=== PATIENT | male | born 1940 | race Hispanic/Latino ===

== ENCOUNTER 2017-03-21 10:56 | Day surgery (SDC) | payer MEDICARE ==
[2017-03-21] MEDS ORDERED: NACL BACTERIOSTATIC INFILTRATI ONE (11:27)
[2017-03-21] MEDS ORDERED: XYLOCAINE MPF 2% ONE (11:48)
[2017-03-21] MEDS ORDERED: DILAUDID ONE (11:48)
[2017-03-21] MEDS ORDERED: DIPRIVAN 10 MG/ML IV ONE (11:48)
[2017-03-21] MEDS ORDERED: ANCEF/STERILE WATER 2 GM/20 ML 2 GM/20 ML SYRINGE IV NR (12:00)
[2017-03-21 12:08] LABS: Hematocrit 37.4 % (35.5-45.6); Hemoglobin 12.8 gm/dl (11.8-15.2)
--- NOTE | 2017-03-21 12:17 | Anesthesia Consultation ---
Anesthesia Consult and Med Hx Date of service: 03/21/17 - Airway Anesthetic Teeth Evaluation: Poor (multiple missing, broken teeth) ROM Head & Neck: Adequate Mental/Hyoid Distance: Adequate Mallampati Class: Class II Intubation Access Assessment: Probably Good - Pre-Operative Health Status ASA Pre-Surgery Classification: ASA3 Proposed Anesthetic Plan: General - Pulmonary Hx Smoking: Yes (STOPPED 2000- PPD X 30 YRS) SOB: Yes (SOB) COPD: Yes (O2 ORDERED AT NIGHT- PT WILL NOT USE) Hx Sleep Apnea: No (SAMANTHA PRE SCREEN HIGH RISK) - Cardiovascular System Hx Hypertension: Yes Hx Coronary Artery Disease: Yes Hx Heart Attack/AMI: Yes (?) Hx Angina: No (no chest pain lately) Hx Percutaneous Transluminal Coronary Angioplasty (PTCA): Yes Hx Valvular Heart Disease: Yes (mitral valve repair 2012) - Central Nervous System Hx Psychiatric Problems: Yes (dementia) - Other Systems Hx Cancer: Yes (LEUKEMIA-IV TX Q 60-90 DAYS)
--- NOTE | 2017-03-21 12:18 | Anesthesia Day of Surgery ---
Anesthesia Day of Surgery - Day of Surgery Patient Examined: Yes Patient H&P Reviewed: Yes Patient is NPO: Yes Beta Blockers: Yes
[2017-03-21 12:21] LABS: Calcium 9.2 mg/dL (8.4-10.2); Chloride 99.6 mmol/L (98-107); Potassium 4.6 mmol/L (3.6-5.0)
[2017-03-21] MEDS ORDERED: PEPCID IV NR (12:30)
[2017-03-21] MEDS ORDERED: NEO SYNEPHRINE/NS Syringe(OR USE) IV ONE (12:30)
[2017-03-21 12:35] LABS: Hematocrit 39.1 % (35.5-45.6); Hemoglobin 12.8 gm/dl (11.8-15.2); Mean Corpuscular HGB Conc 33 % (32-34); Mean Corpuscular Hemoglobin 29 pg (28-32); Mean Corpuscular Volume 90 fl (84-94); Platelet Count 210 K/mm3 (140-440); Red Blood Count 4.35 M/mm3 (3.65-5.03); Red Cell Distribution Width 15.4 % (13.2-15.2); White Blood Count 9.3 K/mm3 (4.5-11.0)
[2017-03-21] MEDS ORDERED: SUBLIMAZE ONE (12:48)
[2017-03-21] MEDS ORDERED: ZOFRAN IV PRN (13:00)
[2017-03-21] MEDS ORDERED: NACL 0.9% 1000 ML 1,000 ML IV SCH (13:00)
[2017-03-21] MEDS ORDERED: DILAUDID IV PRN (13:00)
[2017-03-21] MEDS ORDERED: ePHEDrine SULFATE ONE (13:04)
[2017-03-21] MEDS ORDERED: AMIDATE IV ONE (13:31)
[2017-03-21] MEDS ORDERED: DECADRON ONE (13:32)
[2017-03-21] MEDS ORDERED: ZOFRAN ONE (13:32)
--- NOTE | 2017-03-21 13:43 | Post Operative Note ---
Date of procedure: 03/21/17 Pre-op diagnosis: urinary retention renal failure Post-op diagnosis: same Findings: bilat rflux Procedure: cysto spt insertion cystogram Anesthesia: GETA Surgeon: LEEANNA KAUFMAN Estimated blood loss: none Pathology: none Condition: stable Disposition: PACU
[2017-03-21 13:47] LABS: Blastocytes % (Manual) 0 %
[2017-03-21 13:48] LABS: Anisocytosis Few; Diff Status Complete
--- NOTE | 2017-03-21 13:48 | Discharge Summary ---
Short Stay Discharge Plan Activity: other (no straining ) Weight Bearing Status: Full Weight Bearing Diet: low salt Wound: keep clean and dry Special Instructions: other (spt care ) Durable Medical Equipment Needed Upon Discharge: other (suprapubic tube) Follow up with: SEAN JONES MD [Primary Care Provider] - 7 Days LEEANNA KAUFMAN MD [Staff Physician] - 10 Days
--- NOTE | 2017-03-21 14:14 | Operative Report ---
PREOPERATIVE DIAGNOSES: Urinary retention, neurogenic bladder. POSTOPERATIVE DIAGNOSES: Urinary retention, neurogenic bladder with severe dementia, . PROCEDURE: Cystoscopy with suprapubic tube insertion and cystogram. SURGEON: Alexander Fierro MD ANESTHESIA: General. FINDINGS: This is a gentleman who is poorly compliant with urinary retention, renal failure, reflux, hydroureter, now presents for suprapubic tube placement for discomfort with Barron. DESCRIPTION OF PROCEDURE: The patient was brought to the operating room and placed on the operating table. Following induction of anesthesia, placed in a lithotomy position, prepped and draped in usual sterile fashion. Flexible cystoscopy showed an open bladder neck. There was significant trabeculation. Using the [place], we made a small incision maybe approximately 1-1.5 cm right on the [place] and a 20-Japanese Silastic catheter was brought through the urethra and this was filled with about 15 mL of sterile water. Cystogram showed bilateral reflux with a thickened end-stage bladder, open bladder neck. The patient tolerated the procedure well. No significant bleeding, brought to recovery in stable condition. JOB# [id number] OCTAVIO/GOSIA
--- NOTE | 2017-03-21 15:29 | Fluoroscopy Report ---
Static cystogram. History: Neurogenic bladder. Findings: The study was performed in the OR by Dr. Fierro. The bladder is normal in contour but appears decreased in size. There is vesicoureteral reflux into markedly dilated distal ureters. The upper abdomen is not imaged on this study. Contrast is also seen within the urethra. Impression: 1. Decreased size of the urinary bladder consistent with the clinical diagnosis of neurogenic bladder. 2. Vesicoureteral reflux.
[2017-03-21 18:15] VITALS: BP 118/73
--- NOTE | 2017-03-21 18:42 | Post Anesthesia Evaluation ---
- Post Anesthesia Evaluation Patient Participated: Yes Airway Patent: Yes Stable Respiratory Function: Yes Nausea/Vomiting: No Temp > 96.8F: Yes Pain Manageable: Yes Adequeate Hydration: Yes Anesthesia Complications: No Block Receding Appropriately: Not Applicable Patient on Ventilator: No
== END 2017-03-21 15:50 | disposition home or self-care (01) ==
LOC: OR 10:56
PROVIDERS: ATTEND Urology
DX: N31.9 Neuromuscular dysfunction of bladder, unspecified (principal); N32.89 Other specified disorders of bladder; J44.9 Chronic obstructive pulmonary disease, unspecified; I10 Essential (primary) hypertension; I25.10 Atherosclerotic heart disease of native coronary artery without angina pectoris; F03.90 Unspecified dementia, unspecified severity, without behavioral disturbance, psychotic disturbance, mood disturbance, and anxiety; Z95.5 Presence of coronary angioplasty implant and graft; Z87.891 Personal history of nicotine dependence; Z85.6 Personal history of leukemia; Z87.440 Personal history of urinary (tract) infections; Z88.8 Allergy status to other drugs, medicaments and biological substances; Z79.82 Long term (current) use of aspirin; Z79.899 Other long term (current) drug therapy
CPT/HCPCS: 36415; 51102; 74430; 80048; 85007; 85014; 85018; 85025; J0690; J1100; J1170; J2370; J2405; J2704; J3010; J7030; Q9967